=== PATIENT | female | born 2000 | race African-American/Black ===

== ENCOUNTER 2021-07-09 11:36 | Emergency (ER) | payer SELFPAY ==
[~2021-07-09] VITALS: Ht 162.6 cm; Wt 62.1 kg
== END 2021-07-09 13:09 | disposition home or self-care (01) ==
LOC: ER 12:09
DX: J02.9 Acute pharyngitis, unspecified (principal); Z20.822 Contact with and (suspected) exposure to COVID-19
CPT/HCPCS: 83518; 87070; 99283; U0002